=== PATIENT | male | born 1955 | race Caucasian/White ===

== ENCOUNTER 2019-02-27 15:09 | Emergency (ER) | payer OTHER ==
[2019-02-27] MEDS ORDERED: Bacitracin Oint 1 GM U/D Packet TOP ONE (15:34)
--- NOTE | 2019-02-27 15:38 | EDM.PDOC ---
ED HPI GENERAL MEDICAL PROBLEM - General Chief Complaint: Laceration Stated Complaint: FISH HOOK IN RT INDEX FINGER Time Seen by Provider: 02/27/19 15:30 Source of Information: Reports: Patient History Limitations: Reports: No Limitations - History of Present Illness INITIAL COMMENTS - FREE TEXT/NARRATIVE: 63-year-old male with a fish hook embedded into his finger of the right hand. This has been present for the last hour and a half. He tried to push the hook through but was unable. His tetanus was 2 years ago. Onset: Sudden Duration: Hour(s): (Within the last 2 hours) Location: Reports: Upper Extremity, Left finger Pain Score (Numeric/FACES): 1 - Related Data Allergies Allergy/AdvReac Type Severity Reaction Status Date / Time No Known Drug Allergies Allergy Other Verified 02/27/19 15:30 Home Meds: Home Meds atorvaSTATin [Lipitor] 40 mg PO DAILY 02/27/19 [History] Social & Family History - Tobacco Use Smoking Status *Q: Never Smoker - Caffeine Use Caffeine Use: Reports: Coffee - Recreational Drug Use Recreational Drug Use: No ED ROS GENERAL - Review of Systems Review Of Systems: See Below Constitutional: Denies: Fever, Chills Respiratory: Denies: Shortness of Breath GI/Abdominal: Denies: Abdominal Pain, Nausea, Vomiting Neurological: Reports: No Symptoms ED EXAM, SKIN/RASH Exam: See Below Exam Limited By: No Limitations General Appearance: Alert, No Apparent Distress Respiratory/Chest: No Respiratory Distress Extremities: Other (Exam is otherwise limited to the right hand. Patient has one kamila of a trouble hook embedded into the ulnar aspect of the distal index finger.) Neurological: Alert, Oriented Psychiatric: Normal Affect, Normal Mood Course - Vital Signs Last Recorded V/S: Last Vital Signs Temp 96.9 F 02/27/19 16:02 Pulse 73 02/27/19 16:02 Resp 14 02/27/19 16:02 BP 126/76 02/27/19 16:02 Pulse Ox 97 02/27/19 16:02 - Orders/Labs/Meds Meds: Medications Discontinued Medications Generic Name Dose Route Start Last Admin Trade Name Freq PRN Reason Stop Dose Admin Bacitracin 1 dose 02/27/19 15:34 02/27/19 15:40 Bacitracin Oint 1 Gm TOP 02/27/19 15:35 1 dose ONETIME ONE Administration Lidocaine HCl 5 ml 02/27/19 15:34 02/27/19 15:40 Xylocaine-Mpf 1% INJECT 02/27/19 15:35 5 ml ONETIME ONE Administration - Re-Assessments/Exams Free Text/Narrative Re-Assessment/Exam: 02/27/19 15:54 Lidocaine was infiltrated at the base of the hook and the finger, after sterilizing with alcohol. The hook was then removed with a needle nose pliers without palpitation. Area was scrubbed thoroughly with alcohol, bacitracin and a Band-Aid was applied. Patient will keep the area clean while healing and recheck if concerns of infection or not healing satisfactorily. Departure - Departure Time of Disposition: 16:07 Disposition: Home, Self-Care 01 Condition: Good Clinical Impression: [place] injury to finger Qualifiers: Encounter type: initial encounter Laterality: right Qualified Code(s): S69.91XA - Unspecified injury of right wrist, hand and finger(s), initial encounter - Discharge Information Instructions: Puncture Wound, [id number] Referrals: PCP,None [Primary Care Provider] - Forms: ED Department Discharge Care Plan Goals: Keep wound covered and clean while healing. Increase activity as tolerated, recheck if concerns of infection or not healing satisfactorily.
== END 2019-02-27 16:07 | disposition home or self-care (01) ==
LOC: JP.ED 15:09
DX: S60.450A Superficial foreign body of right index finger, initial encounter (principal); W45.8XXA Other foreign body or object entering through skin, initial encounter; Z79.899 Other long term (current) drug therapy
CPT/HCPCS: 99283; J2001